=== PATIENT | male | born 1980 | race Caucasian/White ===

== ENCOUNTER 2025-03-11 21:55 | Emergency (ER) | payer SELFPAY ==
[~2025-03-11] VITALS: Ht 177.8 cm; Wt 86.2 kg
[2025-03-11] MEDS ORDERED: Tetracaine Hydrochloride 0.5% 4 ML BOT OPH ONE (22:25)
[2025-03-11] MEDS ORDERED: FLUORESCEIN SODIUM 1 MG STRIP OPH ONE (22:25)
[2025-03-11] MEDS ORDERED: SODIUM CHLORIDE 0.9% 1,000 ML IV ONE (22:40)
[2025-03-11] MEDS ORDERED: ERYTHROMYCIN OPH1 GM OPH ×2 (22:51→22:59)
[2025-03-11] MEDS ORDERED: ERYTHROMYCIN 1 GM TUBE OPH ONE (22:55)
== END 2025-03-11 23:00 | disposition home or self-care (01) ==
LOC: ED 21:55
DX: T15.81XA Foreign body in other and multiple parts of external eye, right eye, initial encounter (principal); W44.D0XA Magnetic metal object unspecified, entering into or through a natural orifice, initial encounter; Y93.89 Activity, other specified; Y92.89 Other specified places as the place of occurrence of the external cause; Y99.8 Other external cause status